=== PATIENT | female | born 1975 | race Caucasian/White ===

== ENCOUNTER → 2020-09-12 | Outpatient (CLI) | payer OTHER ==
[~2020-09-12] MED LIST: DIATRIZOATE MEGL/DIATRIZOA SOD 30 ML BTL PO ONE; IMITREX25 MG PO; IOPAMIDOL 370 MG/ML 200 ML INFUS..BTL INJ ONE; PROAIR HFA INH8.5 GM IH; SINGULAIR10 MG PO; SODIUM CHLORIDE 0.9% 50ML 50 ML ONE
== END ==
LOC: CT 17:50
PROVIDERS: ATTEND Internal Medicine Gastroenterology
DX: R19.05 Periumbilic swelling, mass or lump (principal); R10.30 Lower abdominal pain, unspecified
CPT/HCPCS: 74177; Q9967